=== PATIENT | male | born 1935 | race Caucasian/White ===

== ENCOUNTER 2016-10-04 11:44 | Observation (INO) ==
[2016-10-04] MEDS ORDERED: SALINE FLUSH 10ml SYRINGE IVF PRN (12:05)
--- NOTE | 2016-10-04 12:15 | Emergency Department Report ---
General Adult HPI - General Chief complaint: Shortness of Breath/Dyspnea Stated complaint: soa,phlem Time Seen by Provider: 10/04/16 12:05 Source: patient Mode of arrival: ambulatory Limitations: no limitations - History of Present Illness HPI narrative: 81-year-old male presents to the emergency department with a chief complaint of shortness of breath. Patient states that over the course of the past week he has noted dyspnea with exertion. Patient also notes a heaviness in his chest when he exerts himself. Patient states that his symptoms improve with rest. Patient describes his discomfort when present as a moderate heaviness without radiation. He notes that his symptoms improved with rest and relaxation. Symptoms increase with ambulation and exertion. Patient denies any other complaints or associated symptoms. He was at home when his symptoms began. Patient states that his symptoms been persistent in nature on an intermittent basis since onset. Patient currently denies any chest pain or discomfort. - Related Data Home Medications Medication Instructions Recorded Confirmed No known Home medications [No home 10/04/16 10/04/16 meds] Allergies Allergy/AdvReac Type Severity Reaction Status Date / Time No Known Allergies Allergy Verified 10/04/16 12:25 Review of Systems Constitutional: Denies: fever, chills Eyes: Denies: eye pain, eye discharge ENT: Denies: ear pain, throat pain Cardiovascular: Reports: dyspnea on exertion. Denies: chest pain, palpitations Respiratory: Reports: dyspnea. Denies: cough Gastrointestinal: Denies: abdominal pain, nausea, vomiting, diarrhea Genitourinary: Denies: urgency, dysuria Musculoskeletal: Denies: back pain, arthralgia Integumentary: Denies: erythema, rash Neurological: Denies: headache, numbness Psychiatric: Denies: anxiety, depression Endocrine: Denies: fatigue, heat or cold intolerance Hematological/Lymphatic: Denies: easy bleeding, easy bruising Allergic/Immunologic: Denies: facial swelling, urticaria PFSH Patient Stated Medical History Hypertension Yes Diabetes Mellitus Type 2 Yes Ulcer Yes Surgical History: Negative Family History: Reviewed and noncontributory. - Social History Smoking status: Former smoker Substance use type: does not use Alcohol intake frequency: former alcohol drinker Physical Exam - Limitations Limitations: no limitations - General General appearance: alert, in no apparent distress - Normal Exams: Head:: Normocephalic without trauma Eyes:: Pupils are PERRLA w/ EOMI, No scleral icterus, irritation, or foreign bodies noted ENMT:: No facial trauma, nasal exudates, pharyngeal erythema, or exudates are noted Dental: No fractured, loose, or missing teeth noted Neck:: Full range of motion, without adenopathy, JVD, bruits or thyromegaly Chest/Respirations:: Clear all robles, with good airflow, and symmetry bilaterally Cardiovascular:: Regular rate and rhythm, without murmur or gallop, Pulses 2+ all extremities, capillary refill, <2 seconds all extremities Abdomen:: Bowel sounds positive, soft, non-tender, non-distended, no hepatosplenomegaly, masses or bruits noted Lymphatic:: No lymphadenopathy, or lymphedema noted Musculoskeletal:: No tenderness, or deformity noted, good range of motion, all extremities Integumentary:: No rashes, hives, or bruising noted, hair and nails, without abnormality Neurological:: Patient is alert, and oriented, cranial nerves, motor/sensory/ cerebellar, exams w/o gross deficits, to observation Psychiatric:: Patient exhibits, appropriate attention, emotion and affect Course Vital Signs Temperature 98.3 F 10/04/16 11:48 Pulse Rate 105 H 10/04/16 11:48 Respiratory Rate 20 10/04/16 11:48 Blood Pressure 150/93 H 10/04/16 11:48 Pulse Oximetry 90 10/04/16 11:48 Temperature 98.3 F 10/04/16 13:45 Pulse Rate 92 10/04/16 13:45 Respiratory Rate 21 10/04/16 13:45 Blood Pressure 133/81 10/04/16 13:45 Pulse Oximetry 90 10/04/16 13:45 Medical Decision Making - [facility] Narrative Medical decision making narrative: Labs / imaging were discussed in detail with the patient and family and questions are answered. Patient is given aspirin 324 mg by mouth 1 in the emergency Department. Patient is given Lovenox 1 mg/kg subcutaneously 1 in the emergency Department. Patient is admitted to the service of Dr. Sosa the airline managerial supervisor in improved condition. Patient and family are in agreement with the current plan of management. 47 minutes of critical care time was assessed to the patient due to the patient requiring complex medical decision- making, repeated assessment at the bedside, and having the potential for decompensation. Patient had a positive troponin and was treated with 324 mg of aspirin by mouth 1 and Lovenox 1 mg/kg subcutaneous venously 1 in the emergency Department. Patient is admitted to the ICU in improved condition. No further orders from accepting physician who is in agreement with the current plan of management. - Differential Diagnosis ACS, Angina, Metabolic disorder, LA - Lab Data Result diagrams: 10/04/16 12:11 10/04/16 12:11 Lab Results 10/04/16 10/04/16 Range/Units 12:11 12:11 WBC 10.8 (4.5-11.0) T/MM3 RBC 5.69 (4.50-5.90) M/MM3 Hgb 16.9 (13.5-17.5) GM/DL Hct 50.0 (41-53) % MCV 87.9 (80-100) UM3 MCH 29.7 (26-34) UUG MCHC 33.8 (31-37) GM/DL RDW Std Deviation 42.5 (36.9-50.2) FL Plt Count 219 (130-400) T/MM3 MPV 10.8 (9.4-12.4) UM3 Immature Gran % (Auto) 0.2 (0.0-0.5) % Neut % (Auto) 76.4 H (33-66) % Lymph % (Auto) 13.7 L (23-45) % [place] % (Auto) 8.1 (0-9.0) % Eos % (Auto) 1.2 (0-4) % Baso % (Auto) 0.4 (0-2) % Neut # 8.2 H (1.8-7.7) T/MM3 Lymph # 1.5 (1-4.8) T/MM3 [place] # 0.9 H (0-0.8) T/MM3 Eos # 0.1 (0-0.5) T/MM3 Baso # 0.0 (0-0.2) T/MM3 Abs Immat Gran (auto) 0.02 (0.00-0.03) T/MM3 Turbidity < 20 (0-20) Sodium 143 (134-144) MEQ/L Potassium 5.0 (3.6-5) MEQ/L Chloride 107 (98-107) MEQ/L Carbon Dioxide 23 (22-30) MEQ/L Anion Gap 13 (5-15) MEQ/L BUN 20.0 (9-20) MG/DL Creatinine 1.5 (0.8-1.5) MG/DL GFR Calculation 45 BUN/Creatinine Ratio 13 (6-26) RATIO Glucose 164 H (75-110) MG/DL Calculated Osmolality 282 H (261-280) MOSM/KG Calcium 9.8 (8.4-10.2) MG/DL Total Bilirubin 1.20 (0.20-1.30) MG/DL Icterus Index < 2 (0-7) AST 25 (17-59) U/L ALT 28 (21-72) U/L Alkaline Phosphatase 109 (38-126) U/L Troponin I 0.223 H (0-0.12) ng/ml B-Natriuretic Peptide 4790 H (0-175) pg/mL Total Protein 8.0 (6.3-8.2) G/DL Albumin 4.6 (3.5-5.0) G/DL Globulin 3.4 (2.4-3.6) G/DL Albumin/Globulin Ratio 1.4 (1.1-2.2) RATIO Specimen Hemolysis 25 (0-25) - Radiology Data CXR - No acute processes. Critical Care Time Critical Care Time: Yes Total Critical Care Time: 47 Attestation: 47 minutes of critical care time was assessed to the patient due to the positive troponin. Patient required repeated assessment at the bedside, complex medical decision-making, and had potential for decompensation. The critical care time was spent treating the patient, discussing with family, making phone calls on the patient's behalf, and documenting the medical record. Patient was admitted to the ICU in improved condition. Disposition Clinical Impression: Elevated troponin Disposition: 02 To [facility] [place] Acute Care Condition: Improved Time of Disposition: 12:47 (Admit: Dr. Sosa. ) - Seen By: physician
--- OUTSIDE RECORDS SUMMARY | 2016-10-04 12:27 | External Medical Summary | Summary of Care ---
:1935 Author Name Jak Perez M.D. Address Unavailable Unavailable , Care Team Providers Name Role Phone Jak Perez M.D. 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 Arthritis (716.90, M19.90) Status: Active Murmur (785.2, R01.1) Status: Active Sensorineural hearing loss (389.10, H90.5) Status: Active Lower back pain (724.2, M54.5) Status: Active Routine physical examination (V70.0, Z00.00) Status: Active Right shoulder pain (719.41, M25.511) Status: Active Edema (782.3, R60.9) Status: Active Diabetes mellitus type 2, controlled (250.00, E11.9) Status: Active Hypertension, essential, benign (401.1, I10) Status: Active Hyperlipidemia (272.4, E78.5) Status: Active CKD (chronic kidney disease) stage 3, GFR 30-59 ml/min (585.3, N18.3) Status : Active Medications Name Dates Details Aspirin Low Dose 81 MG TABS TAKE 1 TABLET DAILY. Quantity: 90 Refills: 3 Al Perez M.D. Start 20-Apr-2008 Active Simvastatin 40 MG Oral Tablet TAKE 1 TABLET BY MOUTH EVERY NIGHT AT BEDTIME Quantity: 30 Refills: 5 Al Perez M.D. Start 18-Oct-2010 Active Lisinopril-Hydrochlorothiazide 10-12.5 MG Oral Tablet TAKE 1 TABLET DAILY. Quantity: 30 Refills: 5 Al Perez M.D. Start Active Water Pills Oral Tablet Refills: 0 Al Perez M.D. 17-Jul-2016 Active Allergies and Adverse Reactions Name Dates Details No Known Drug Allergies (Allergy) Status: Active Past Medical History Name Dates Details History of abnormal weight loss (V13.89, Z87.898) Status: Resolved History of Benign colon polyp (211.3, K63.5) Status: Resolved History of Peptic Ulcer (V12.71) Status: Resolved History of renal calculi (V13.01, Z87.442) Status: Resolved Procedures Procedure Dates Details History of Tonsillectomy History of Exploratory Laparotomy History of Complete Colonoscopy BASIC METABOLIC PROFILE 1210 Ordered: 22-Jul-2016 CBC w/ Auto Diff 7150 Ordered: 22-Jul-2016 HEMOGLOBIN A1C 3507 Ordered: 22-Jul-2016 LIPID PROFILE 1184 Ordered: 22-Jul-2016 THYROID STIM. HORMONE 3602 Ordered: 22-Jul-2016 Immunization Name Dates Details Pneumo (Pneumovax) on: 19-Jun-2009 Family History Unknown Family Member Name Dates Details Family history of Diabetes Mellitus (V18.0) Comments: Family History Status: Active Family history of Composition Of Household ___ Brothers Comments: Family History Status: Active Family history of Composition Of Household ___ Sisters Comments: Family History Status: Active Family history of Family Health Status Children Comments: Family History Status: Active Mother Name Dates Details Family history of Laryngeal Cancer (V16.2) Status: Active Family history of lung cancer (V16.1, Z80.1) Status: Active Father Name Dates Details Family history of Electrocution Status: Active Brother Name Dates Details Family history of Coronary Artery Disease (V17.49) Status: Active Social History Name Dates Details - Status: Smoking Status Name Dates Details Former smoker Vital Signs Date Test Result Details No Known Vitals to report Results Date Description Value Details Results not documented Plan of Care Name Dates Details Planned Observations Planned Goals not documented Planned Encounters Appointment; Provider: Al Perez M.D. On 23-Oct-2016 09:30 Interventions Provided Medication ChangesIbuprofen 800 MG Oral Tablet - StopLisinopril- Hydrochlorothiazide 10-12.5 MG Oral Tablet - RenewSimvastatin 40 MG Oral Tablet - RenewLabs/Procedures/ImagingComprehensive Metabolic Panel 1212; Done: Jul 17 2016 11:14AMHEMOGLOBIN A1C 3507; Done: Jul 17 2016 11:14AM Instructions Name Dates Details Instructions not documented Encounters Appointment; Al Perez M.D. On Encounter Diagnosis: Problem not documented 08:30 Appointment; Al Perez M.D. On 08-Jun-2015 Encounter Diagnosis: Problem not documented 15:00 Appointment; Al Perez M.D. On 09-May-2015 Encounter Diagnosis: Problem not documented 08:45 Appointment; Al Perez M.D. On 04-May-2015 Encounter Diagnosis: Problem not documented 10:45 Appointment; Al Perez M.D. On 05-Feb-2015 Encounter Diagnosis: Problem not documented 14:00 Appointment; Al Perez M.D. On 25-Dec-2014 Encounter Diagnosis: Problem not documented 13:15
--- OUTSIDE RECORDS SUMMARY | 2016-10-04 12:27 | External Medical Summary | Summary of Care ---
[...] Routine physical examination (V70.0, Z00.00) Status: Active Hyperlipidemia (272.4, E78.5) Status: Active Right shoulder pain (719.41, M25.511) Status: Active Hypertension, essential, benign (401.1, I10) Status: Active Edema (782.3, R60.9) Status: Active Diabetes mellitus type 2, controlled (250.00, E11.9) Status: Active Medications Name Dates Details Aspirin Low Dose 81 MG TABS TAKE 1 TABLET DAILY. Quantity: 90 Refills: 3 Al Perez M.D. Start 20-Apr-2008 Active Simvastatin 40 MG Oral Tablet TAKE 1 TABLET BY MOUTH EVERY NIGHT AT BEDTIME Quantity: 30 Refills: 5 Al Perez M.D. Start 18-Oct-2010 Active Lisinopril-Hydrochlorothiazide 10-12.5 MG Oral Tablet TAKE 1 TABLET DAILY. Quantity: 30 Refills: 5 Al ePrez M.D. Start Active Water Pills Oral Tablet Refills: 0 Al Perez M.D. Start 17-Jul-2016 Active Allergies and Adverse Reactions Name [...] of Exploratory Laparotomy History of Complete Colonoscopy Comprehensive Metabolic Panel 1212 Ordered: 17-Jul-2016 HEMOGLOBIN A1C 3507 Ordered: 17-Jul-2016 Immunization Name Dates Details Pneumo (Pneumovax) on: [...] smoker Vital Signs Date Test Result Details 17-Jul-2016 10:42 BP Systolic 128 mm[Hg] Status: Comments: Location: ; Position: BP Diastolic 74 mm[Hg] Status: Comments: Location: ; Position: Heart Rate 59 /min Status: Comments: Location: ; Weight 196 lb Status: Body Mass Index Calculated 30.47 kg/m2 Status: Body Surface Area Calculated 2.01 m2 Status: 17-Jul-2016 10:39 BP Systolic 128 mm[Hg] Status: Comments: Location: ; Position: BP Diastolic 74 mm[Hg] Status: Comments: Location: ; Position: Heart Rate 59 /min Status: Comments: Location: ; Weight 196 lb Status: Body Mass Index Calculated 30.47 kg/m2 Status: Body Surface Area Calculated 2.01 m2 Status: Results Date Description Value Details Results not documented Plan of Care Name Dates Details Planned Observations Planned Goals not documented Planned Encounters Appointment; Provider: Al Perez M.D. On 23-Oct-2016 09:30 Interventions Provided Medication ChangesIbuprofen 800 MG Oral Tablet - StopLisinopril- Hydrochlorothiazide 10-12.5 MG Oral Tablet - RenewSimvastatin 40 MG Oral Tablet - RenewLabs/Procedures/ImagingComprehensive Metabolic Panel 1212; To be Done: 17 Jul 2016HEMOGLOBIN A1C 3507; To be Done: 17 Jul 2016 Instructions Name Dates Details Instructions not documented [...]
--- OUTSIDE RECORDS SUMMARY | 2016-10-04 12:27 | External Medical Summary | Summary of Care ---
:1935 Author Name Jak Perez M.D. Address [address], [place] [id number] Care Team Providers Name Role Phone Jak Perez M.D. Unavailable Unavailable Al Perez Primary Care Provider Unavailable Unavailable Unavailable Unavailable Functional Status Functional [...] Lower back pain (724.2, M54.5) Status: Active Hyperlipidemia (272.4, E78.5) Status: Active Type 2 diabetes mellitus (250.00, E11.9) Status: Active Hypertension (401.9, I10) Status: Active Routine physical examination (V70.0, Z00.00) Status: Active Right shoulder pain (719.41, M25.511) Status: Active Medications Name Dates Details Aspirin Low Dose 81 MG Oral Tablet TAKE 1 TABLET DAILY. Quantity: 90 Refills: 3 Al Perez M.D. Started 20-Apr-2008 ActiveLisinopril 20 MG Oral Tablet TAKE ONE TABLET BY MOUTH ONCE DAILY Quantity: 30 Refills: 5 Al Perez M.D. Started 20-Apr-2008 ActiveSimvastatin 40 MG Oral Tablet TAKE ONE TABLET BY MOUTH EVERY DAY AT BEDTIME Quantity: 30 Refills: 5 Al Perez M.D. Started 18-Oct-2010 ActiveIbuprofen 800 MG Oral Tablet TAKE 1 TABLET 3 TIMES DAILY WITH FOOD NEEDED. Quantity: 60 Refills: 0 Al Perez M.D. Started 04-Apr-2011 ActiveHydrocodone-Acetaminophen 5-325 MG Oral Tablet TAKE 1 TABLET EVERY 4 TO 6 HOURS NEEDED. Quantity: 25 Refills: 0 Al Perez M.D. Started 04-May-2015 ActiveMeloxicam 15 MG Oral Tablet TAKE 1 TABLET DAILY. Quantity: 15 Refills: 5 Al Perez M.D. Started 04-May-2015 ActiveOxycodone-Acetaminophen 7.5-325 MG Oral Tablet TAKE 1 TO 2 TABLETS EVERY 4 TO 6 HOURS NEEDED FOR PAIN. Quantity: 30 Refills: 0 Al Perez M.D. Started 08-May-2015 Active Allergies and Adverse Reactions Name Dates Details No Known Drug Allergies Status: Active Past Medical History Name Dates Details History of abnormal weight loss (V13.89, Z87.898) Status: Resolved History of Benign colon polyp (211.3, K63.5) Status: Resolved History of Peptic Ulcer (V12.71) Status: Resolved History of renal calculi (V13.01, Z87.442) Status: Resolved Procedures Procedure Dates Details History of Tonsillectomy History of Exploratory Laparotomy History of Complete Colonoscopy Procedures not documented Immunization Name Dates Details Pneumo (Pneumovax) Administered on:19-Jun-2009 Family History Unknown Family Member Name Dates [...] Status: Active Social History Name Dates Details Smoking StatusFormer smoker Vital Signs Date Test Result Details 09-May-2015 08:52 BP Systolic 140 mm[Hg] Status: BP Diastolic 86 mm[Hg] Status: Heart Rate 82 /min Status: Weight 192 lb Status: Body Mass Index Calculated 29.85 kg/m2 Status: Body Surface Area Calculated 1.99 m2 Status: Results Date Description Value Details Results not documented Plan of Care Planned Observations Name Dates Details Planned Goals not documented Goal Planned Encounters Appointment; Provider: Al Perez On 08-Jun-2015 15:15 Appointment; Provider: Edson Hirsch On 12:00 Appointment; Provider: Edson Hirsch On 15:30 Appointment; Provider: Edson Hirsch On 15:30 Instructions Instructions not documented Encounters Appointment; Al Perez On 09-May-2015 Encounter Diagnosis: Problem not documented 08:45 Appointment; Al Perez On 04-May-2015 Encounter Diagnosis: Problem not documented 10:45 Appointment; Al Perez On 05-Feb-2015 Encounter Diagnosis: Problem not documented 14:00 Appointment; Al Perez On 25-Dec-2014 Encounter Diagnosis: Problem not documented 13:15 Appointment; Nik John On 06-Mar-2014 Encounter Diagnosis: Problem not documented 09:30 Appointment; Edson Hirsch On 30-Nov-2013 Encounter Diagnosis: Problem not documented 12:15 Appointment; Al Perez On 07-Oct-2013 Encounter Diagnosis: Problem not documented 10:15 Appointment; Al Perez On Encounter Diagnosis: Problem not documented 09:15 Appointment; Edson Hirsch On Encounter Diagnosis: Problem not documented 08:15 Appointment; Edson Hirsch On Encounter Diagnosis: Problem not documented 14:15 Appointment; Edson Hirsch On Encounter Diagnosis: Problem not documented 11:45 Appointment; Toby Cabrera On Encounter Diagnosis: Problem not documented 08:15
--- OUTSIDE RECORDS SUMMARY | 2016-10-04 12:27 | External Medical Summary | Summary of Care ---
:1935 Author Name Jak Perez M.D. Address [address] [place], [place] [id number] Care Team Providers Name Role Phone Jak Perez M.D. 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 Hyperlipidemia (272.4, E78.5) Status: Active Arthritis (716.90, M19.90) Status: Active Murmur (785.2, R01.1) Status: Active Sensorineural hearing loss (389.10, H90.5) Status: Active Type 2 diabetes mellitus (250.00, E11.9) Status: Active Nephrolithiasis (592.0, N20.0) Status: Active Cough (786.2, R05) Status: Active Weight loss, abnormal (783.21, R63.4) Status: Active Fatigue (780.79, R53.83) Status: Active Hypertension (401.9, I10) Status: Active Insomnia (780.52, G47.00) Status: Active Acute bronchitis (466.0, J20.9) Status: Active Lower back pain (724.2, M54.5) Status: Active Medications Name Dates Details Aspirin Low Dose 81 MG Oral Tablet TAKE 1 TABLET DAILY. Quantity: 90 Refills: 3 Al Perez M.D. Started 20-Apr-2008 ActiveLisinopril 20 MG Oral Tablet TAKE ONE TABLET BY MOUTH ONCE DAILY Quantity: 30 Refills: 0 Al Perez M.D. Started 20-Apr-2008 ActiveSimvastatin 40 MG Oral Tablet TAKE ONE TABLET BY MOUTH EVERY DAY AT BEDTIME Quantity: 30 Refills: 5 Al Perez M.D. Started 18-Oct-2010 ActiveIbuprofen 800 MG Oral Tablet TAKE 1 TABLET 3 TIMES DAILY WITH FOOD NEEDED. Quantity: 60 Refills: 0 Al Perez M.D. Started 04-Apr-2011 ActiveLevofloxacin 500 MG Oral Tablet Take 1 tablet daily Quantity: 7 Refills: 0 Al Perez M.D. Started 25-Dec-2014 Active Allergies and Adverse Reactions Name Dates Details No Known Drug Allergies Status: Active Past Medical History Name Dates Details History of Peptic Ulcer (V12.71) Status: Resolved Procedures Procedure Dates Details History of Tonsillectomy History of Exploratory Laparotomy History of Complete Colonoscopy CBC w/ Auto Diff 7150 Ordered:26-Dec-2014 Comprehensive Metabolic Panel 1212 Ordered:26-Dec-2014 LIPID PROFILE 1184 Ordered:26-Dec-2014 THYROID STIM. HORMONE 3602 Ordered:26-Dec-2014 HEMOGLOBIN A1C 3507 Ordered:26-Dec-2014 Immunization Name Dates Details Pneumo (Pneumovax) Administered [...] not documented Goal Planned Encounters Appointment; Provider: Edson Hirsch On 12:00 Appointment; Provider: Edson Hirsch On 15:30 Appointment; Provider: Edson Hirsch On 15:30 Instructions Instructions not documented Encounters Appointment; Al Perez On 25-Dec-2014 Encounter Diagnosis: [...] Encounter Diagnosis: Problem not documented 08:15 Appointment; Al Perez On 02-May-2013 Encounter Diagnosis: Problem not documented 09:00 Appointment; Nik John On 07-Mar-2013 Encounter Diagnosis: Problem not documented 09:15
--- OUTSIDE RECORDS SUMMARY | 2016-10-04 12:27 | External Medical Summary | Summary of Care ---
:1935 Author Name Jak Perez M.D. Address [address] [place], [place] [id number] Care Team Providers Name Role Phone Jak [...] Refills: 0 Al Perez M.D. Started 04-Apr-2011 ActiveCyclobenzaprine HCl - 10 MG Oral Tablet TAKE 1 TABLET Bedtime PRN muscle spasm Quantity: 15 Refills: 0 Al Perez M.D. Started 04-May-2015 ActiveHydrocodone-Acetaminophen 5-325 MG Oral Tablet TAKE 1 [...] smoker Vital Signs Date Test Result Details 04-May-2015 10:43 BP Systolic 156 mm[Hg] Status: BP Diastolic 92 mm[Hg] Status: Heart Rate 84 /min Status: Weight 192 lb Status: Body Mass Index Calculated 29.85 kg/m2 Status: Body Surface Area Calculated 1.99 m2 Status: Results Date Description Value Details 07-May-2015 13:08 XRay SHOULDER-Right Comments: Exam Date: 05/07/2015 12: 19Dictation Date: 05/07/2015 13:08 X SHOULDER COMP (MIN 2V) RT (Better) Plan of Care Planned Observations Name Dates Details Planned Goals not documented Goal Planned Encounters Appointment; Provider: Al Perez On 08-Jun-2015 15:15 Appointment; Provider: Da Spencer On 16-May-2015 11:00 Appointment; Provider: Al Perez On 09-May-2015 08:45 Appointment; Provider: Edosn Hirsch On 12:00 Appointment; Provider: Edson Hirsch On 15:30 Appointment; Provider: Edson Hirsch On 15:30 Instructions Instructions not documented Encounters Appointment; Al Perez On 04-May-2015 Encounter Diagnosis: Problem not documented 10:45 Appointment; Al Perez On 05-Feb-2015 Encounter Diagnosis: Problem not documented 14:00 Appointment; Al Perez On 25-Dec-2014 Encounter Diagnosis: Problem not documented 13:15 Appointment; Nik John On 06-Mar-2014 Encounter Diagnosis: Problem not documented 09:30 Appointment; Edosn Hirsch On 30-Nov-2013 Encounter Diagnosis: Problem not [...]
--- OUTSIDE RECORDS SUMMARY | 2016-10-04 12:27 | External Medical Summary | Summary of Care ---
:1935 Author Name Jak Perez M.D. Address [address], [place] [id number] Care Team Providers Name Role Phone Jak [...] smoker Vital Signs Date Test Result Details 08-Jun-2015 15:06 BP Systolic 138 mm[Hg] Status: BP Diastolic 90 mm[Hg] Status: Heart Rate 72 /min Status: Weight 191 lb Status: Body Mass Index Calculated 29.69 kg/m2 Status: Body Surface Area Calculated 1.99 m2 Status: Results Date Description Value Details 07-Jun-2015 10:30 BASIC METABOLIC PROFILE Comments: Fastin hours 1210 SODIUM 137 mmol/L Range: 133-144 (Better) POTASSIUM 4.1 mmol/L Range: 3.5-5.1 (Better) CHLORIDE 100 mmol/L Range: 98-110 (Better) CARBON DIOXIDE 26.9 mmol/L Range: 23.0-33.0 (Better) ANION GAP 10 mmol/L (Better) Range: 6-16 BUN 22 mg/dL (Above Range: 7-18 high threshold) CREATININE, SERUM 1.38 mg/dL (Above Range: 0.70-1.30 high threshold) Comments: Please note new reference ranges effective 07/15.----- EST GFR, >60 ml/min Range: >60 (Better) EST GFR, NON-AFR TURKISH 50 ml/min (Below Range: >60 low threshold) Comments: EST GFR is reported in ml/min per 1.73 m2 of body surface area. For -South African, please multiple result by 1.2.----- BUN:CREATININE RATIO 16 (Better) GLUCOSE 129 mg/dL (Above Range: 70-100 high threshold) CALCIUM 8.7 mg/dL (Better) Range: 8.5-10.1 10:38 Quant Microalbumin 1106 Comments: Fastin hours MICROALBUMIN, URINE 10.2 mg/L (Better) Range: <20.1 11:10 HEMOGLOBIN A1C 3507 Comments: Fastin hours Hemoglobin A1C 6.4 % (Better) ESTIMATED AVG. GLUCOSE 137 (Better) Plan of Care Planned Observations Name Dates Details Planned Goals not documented Goal Planned Encounters Appointment; Provider: Al Perez On 08:30 Appointment; Provider: Edson Hirsch On 12:00 Appointment; Provider: Edson Hirsch On 15:30 Appointment; Provider: Edson Hirsch On 15:30 Instructions Instructions not documented Encounters Appointment; Al Perez On 08-Jun-2015 Encounter Diagnosis: Problem not documented 15:00 Appointment; Al Perez On 09-May-2015 Encounter Diagnosis: [...]
--- OUTSIDE RECORDS SUMMARY | 2016-10-04 12:27 | External Medical Summary | Summary of Care ---
[...] Right shoulder pain (719.41, M25.511) Status: Active Diabetes mellitus type 2, controlled (250.00, E11.9) Status: Active Hypertension, essential, benign (401.1, I10) Status: Active Edema (782.3, R60.9) Status: Active Medications Name Dates Details Aspirin Low Dose 81 MG TABS TAKE 1 TABLET DAILY. Quantity: 90 Refills: 3 Al Perez M.D. Start 20-Apr-2008 Active Simvastatin 40 MG Oral Tablet TAKE ONE TABLET BY MOUTH ONCE DAILY AT BEDTIME Quantity: 30 Refills: 5 Al Perez M.D. 18-Oct-2010 Active Ibuprofen 800 MG Oral Tablet TAKE 1 TABLET 3 TIMES DAILY WITH FOOD NEEDED. Quantity: 60 Refills: 0 Al Perez M.D. 04-Apr-2011 Active Lisinopril-Hydrochlorothiazide 20-12.5 MG Oral Tablet TAKE 1 TABLET DAILY. Quantity: 30 Refills: 5 Al Perez M.D. Active Allergies and Adverse Reactions Name Dates [...] documented Immunization Name Dates Details Pneumo (Pneumovax) on: [...] smoker Vital Signs Date Test Result Details 08:32 BP Systolic 150 mm[Hg] Status: Comments: Location: ; Position: BP Diastolic 78 mm[Hg] Status: Comments: Location: ; Position: Heart Rate 82 /min Status: Comments: Location: ; Weight 194.25 lb Status: Body Mass Index Calculated 30.2 kg/m2 Status: Body Surface Area Calculated 2 m2 Status: Results Date Description Value Details 10:32 BASIC METABOLIC PROFILE 1210 Comments: Fastin hours SODIUM 140 mmol/L Range: 133-144 POTASSIUM 4.4 mmol/L Range: 3.5-5.1 CHLORIDE 105 mmol/L Range: 98-110 CARBON DIOXIDE 28.3 mmol/L Range: 23.0-33.0 ANION GAP 7 mmol/L Range: 6-16 BUN 22 mg/dL (Above high Range: 7-18 threshold) CREATININE, SERUM 1.55 mg/dL (Above high Range: 0.70-1.30 threshold) Comments: Please note new reference ranges effective 2014. ----- EST GFR, 53 ml/min (Below low Range: >60 threshold) EST GFR, NON-AFR AUSTRALIAN 44 ml/min (Below low Range: >60 threshold) Comments: EST GFR is reported in ml/min per 1.73 m2 of body surface area. For -Mauritian, please multiple result by 1.2.----- BUN:CREATININE RATIO 14 GLUCOSE 122 mg/dL (Above high Range: 70-100 threshold) CALCIUM 8.9 mg/dL Range: 8.5-10.1 13:05 HEMOGLOBIN A1C 3507 Comments: Fastin hours Hemoglobin A1C 6.6 % ESTIMATED AVG. GLUCOSE 143 Plan of Care Name Dates Details Planned Observations Planned Goals not documented Planned Encounters Appointment; Provider: Al Perez M.D. On 02-Nov-2015 08:30 Interventions Provided Medication ChangesLisinopril 20 MG Oral Tablet - StopLisinopril- Hydrochlorothiazide 20-12.5 MG Oral Tablet - Start Instructions Name Dates Details Instructions not documented Encounters Appointment; Al Perez M.D. On 08-Jun-2015 Encounter Diagnosis: Problem not documented 15:00 Appointment; Al Perez M.D. On 09-May-2015 Encounter Diagnosis: Problem not documented 08:45 Appointment; Al Perez M.D. On 04-May-2015 Encounter Diagnosis: Problem not documented 10:45 Appointment; Al Perez M.D. On 05-Feb-2015 Encounter Diagnosis: Problem not documented 14:00 Appointment; Al Perez M.D. On 25-Dec-2014 Encounter Diagnosis: Problem not documented 13:15 Appointment; Nik John M.D. On 06-Mar-2014 Encounter Diagnosis: Problem not documented 09:30 Appointment; Edson Hirsch M.D.|Sheila,MATTHEW|Corrine,MATTHEW, On 2013 Encounter Diagnosis: Problem not documented 12:15 Appointment; Al Perez M.D. On 07-Oct-2013 Encounter Diagnosis: Problem not documented 10:15 Appointment; Al Perez M.D. On Encounter Diagnosis: Problem not documented 09:15"
--- OUTSIDE RECORDS SUMMARY | 2016-10-04 12:27 | External Medical Summary | Summary of Care ---
:1935 Author Name Jak Perez M.D. Address Unavailable Unavailable , Care Team Providers Name Role Phone Chris Castle, Jak Melendez Unavailable Unavailable Al Perez Primary Care Provider [...] Status: Active Hyperlipidemia (272.4, E78.5) Status: Active Hypertension, essential, benign (401.1, I10) Status: Active Diabetes mellitus type 2, controlled (250.00, E11.9) Status: Active Right shoulder pain (719.41, M25.511) Status: Active Medications Name Dates Details Aspirin Low Dose 81 MG TABS TAKE 1 TABLET DAILY. Quantity: 90 Refills: 3 Al Perez M.D. Started 20-Apr-2008 ActiveSimvastatin 40 MG Oral Tablet TAKE ONE TABLET BY MOUTH ONCE DAILY AT BEDTIME Quantity: 30 Refills: 5 Al Perez M.D. Started 18-Oct-2010 ActiveIbuprofen 800 MG Oral Tablet TAKE 1 TABLET 3 TIMES DAILY WITH FOOD NEEDED. Quantity: 60 Refills: 0 Al Perez M.D. Started 04-Apr-2011 ActiveMeloxicam 15 MG Oral Tablet TAKE 1 TABLET DAILY. Quantity: 15 Refills: 5 Al Perez M.D. Started 04-May-2015 ActiveOxycodone-Acetaminophen 7.5-325 MG Oral Tablet TAKE 1 TO 2 TABLETS EVERY 4 TO 6 HOURS NEEDED FOR PAIN. Quantity: 30 Refills: 0 Al Perez M.D. Started 08-May-2015 ActiveHydrocodone-Acetaminophen 5-325 MG Oral Tablet TAKE 1 TABLET EVERY 4 TO 6 HOURS NEEDED. Quantity: 25 Refills: 0 Al Perez M.D. Started 04-May-2015 ActiveLisinopril 20 MG Oral Tablet TAKE ONE TABLET BY MOUTH ONCE DAILY Quantity: 30 Refills: 5 Al Perez M.D. Started 20-Apr-2008 Active Allergies and Adverse Reactions Name Dates [...]
--- OUTSIDE RECORDS SUMMARY | 2016-10-04 12:27 | External Medical Summary | Summary of Care ---
:1935 Author Name Jak Perez M.D. Address [address], [place] [id number] Care Team Providers Name Role Phone Jak [...] Refills: 5 Al Perez M.D. Started 04-May-2015 Active Allergies and Adverse Reactions Name Dates [...] Encounter Diagnosis: Problem not documented 14:15 Appointment; Esdon Hirsch On Encounter Diagnosis: Problem not documented 11:45 Appointment; Toby Cabrera On Encounter Diagnosis: Problem not documented 08:15
--- OUTSIDE RECORDS SUMMARY | 2016-10-04 12:27 | External Medical Summary | Summary of Care ---
:1935 Author Name Jak Perez M.D. Address [address], [place] [id number] Care Team Providers Name Role Phone Jak Perez M.D. Unavailable Unavailable Al Perez Primary Care Provider Unavailable Unavailable Unavailable Unavailable Functional Status Functional Status Health Issues Name Dates Details Functional status health issues are not documented Status: Cognitive Status Health Issues Name Dates Details Cognitive status health issues are not documented Status: Problems Name Dates Details Actinic keratosis (702.0, L57.0) Status: Active Routine history and physical examination [...] Status: Active Hypertension (401.9, I10) Status: Active Benign colon polyp (211.3, K63.5) Status: Active Medications Name Dates Details Aspirin [...] Refills: 0 Al Perez M.D. Started 04-Apr-2011 Active Allergies and Adverse Reactions Name Dates Details No Known Drug Allergies Status: Active Past Medical History Name Dates Details History of abnormal weight loss (V13.89, Z87.898) Status: Resolved History of Peptic Ulcer (V12.71) [...] smoker Vital Signs Date Test Result Details 05-Feb-2015 14:01 BP Systolic 152 mm[Hg] Status: BP Diastolic 84 mm[Hg] Status: Temperature 98.6 f Status: Heart Rate 72 /min Status: Respiration Rate 18 /min Status: Weight 193.6 lb Status: Body Mass Index Calculated 30.1 kg/m2 Status: Body Surface Area Calculated 2 m2 Status: Results Date Description Value Details 30-Jan-2015 09:09 CBC w/ Auto Diff 7150 Comments: Fastin hours WBC 6.3 K/uL (Better) Range: 4.5-11.0 RBC 4.65 mil/uL Range: 4.20-5.40 (Better) HGB 14.0 g/dL Range: 14.0-18.0 (Better) HCT 43.4 % (Better) Range: 42.0-53.0 MCV 93.2 fL (Better) Range: 80.0-99.0 MCH 30.1 pg (Better) Range: 27.3-32.5 MCHC 32.3 % (Better) Range: 32.0-36.0 RDW 13.1 % (Better) Range: 11.6-14.8 PLATELETS 212 K/uL (Better) Range: 150-400 MPV 8.4 fL (Better) Range: 6.0-11.0 %NEUTRO 51.0 % (Better) Range: 37.0-80.0 %LYMPHS 31.9 % (Better) Range: 13.0-50.0 %MONO 6.9 % (Better) Range: 0.0-12.0 %EOS 6.8 % (Better) Range: 0.0-7.0 %BASO 0.7 % (Better) Range: 0.0-2.5 %LEANN 2.7 % (Better) Range: 0.0-5.0 NEUTRO 3.2 K/uL (Better) Range: 2.0-6.9 LYMPHS 2.0 K/uL (Better) Range: 0.6-3.4 MONOS 0.4 K/uL (Better) Range: 0.0-0.9 EOS 0.4 K/uL (Better) Range: 0.0-0.7 BASO 0.0 K/uL (Better) Range: 0.0-0.2 09:37 THYROID STIM. HORMONE 3602 Comments: Fastin hours THYROID STIM. HORMONE 1.400 uIU/mL Range: 0.550-4.780 (Better) Comments: No established reference ranges for infants and children <2 years of age----- 09:40 Comprehensive Metabolic Comments: Fastin hours Panel 1212 SODIUM 136 mmol/L Range: 133-144 (Better) POTASSIUM 4.5 mmol/L Range: 3.5-5.1 (Better) CHLORIDE 102 mmol/L Range: 98-110 (Better) CARBON DIOXIDE 28.9 mmol/L Range: 23.0-33.0 (Better) ANION GAP 5 mmol/L (Below Range: 6-16 low threshold) BUN 23 mg/dL (Above Range: 7-18 high threshold) CREATININE, SERUM 1.42 mg/dL (Above Range: 0.70-1.30 high threshold) Comments: Please note new reference ranges effective 07/15.----- BUN:CREATININE RATIO 16 (Better) EST GFR, 59 ml/min (Below Range: >60 low threshold) EST GFR, NON-AFR SAMMARINESE 48 ml/min (Below Range: >60 low threshold) Comments: EST GFR is reported in ml/min per 1.73 m2 of body surface area. For -Ecuadorean, please multiple result by 1.2.----- GLUCOSE 110 mg/dL (Above Range: 70-100 high threshold) ALK PHOSPHATASE 80 U/L (Better) Range: 46-116 TOTAL BILIRUBIN 0.40 mg/dL Range: 0.20-1.00 (Better) AST 19 U/L (Better) Range: 8-35 ALT 18 U/L (Better) Range: 16-63 Comments: Please note new reference ranges. Effective 05/04/2014.----- ALBUMIN 3.7 g/dL (Better) Range: 3.4-5.0 TOTAL PROTEIN 7.0 g/dL (Better) Range: 6.4-8.2 A/G RATIO 1.1 units Range: 1.0-1.8 (Better) CALCIUM 8.7 mg/dL Range: 8.5-10.1 (Better) 09:40 LIPID PROFILE 1184 Comments: Fastin hours CHOLESTEROL 183 mg/dL Range: <200 (Better) TRIGLYCERIDES 59 mg/dL (Better) Range: 30-200 HDL Cholesterol 43 mg/dL (Better) Range: >39 NON HDL CHOLESTEROL 140 (Better) CARDIAC RSK FACTOR 4.3 units (Below Range: 4.4-5.0 low threshold) LDL - CALCULATED 128 mg/dL Range: 0-130 (Better) 09:43 HEMOGLOBIN A1C 3507 Comments: Fastin hours Hemoglobin A1C 6.7 % (Better) ESTIMATED AVG. GLUCOSE 146 (Better) Plan of Care Planned Observations Name Dates Details Planned Goals not documented Goal Planned Encounters Appointment; Provider: Edson Hirsch On 12:00 Appointment; Provider: Edson Hirsch On 15:30 Appointment; Provider: Edson Hirsch On 15:30 Instructions Instructions not documented Encounters Appointment; Al Perez On 05-Feb-2015 Encounter Diagnosis: [...]
--- OUTSIDE RECORDS SUMMARY | 2016-10-04 12:27 | External Medical Summary | Summary of Care ---
:1935 Author Name Jak Perez M.D. Address [address], [place] [id number] Care Team Providers Name Role Phone Jak [...]
--- OUTSIDE RECORDS SUMMARY | 2016-10-04 12:28 | External Medical Summary | Summary of Care ---
:1935 Author Name Jak Perez M.D. Address [address], [place] [phone] Care Team Providers Name Role Phone Jak [...] Body Surface Area Calculated 1.99 m2 Status: 04-May-2015 10:43 BP Systolic 156 mm[Hg] Status: [...] Da Spencer On 16-May-2015 11:00 Appointment; Provider: Edson Hirsch On 12:00 Appointment; [...] Diagnosis: Problem not documented 12:15 Appointment; Al Perze On 07-Oct-2013 Encounter Diagnosis: Problem not documented [...]
--- OUTSIDE RECORDS SUMMARY | 2016-10-04 12:28 | External Medical Summary | Summary of Care ---
:1935 Author Name Jak Perez M.D. Address Unavailable Unavailable , Care Team Providers Name Role Phone Chris Castle, Jak Mleendez Unavailable Unavailable Al Perez Primary Care Provider [...] Refills: 0 Al Perez M.D. Started 04-Apr-2011 ActiveLisinopril-Hydrochlorothiazide 20-12.5 MG Oral Tablet TAKE 1 TABLET DAILY. Quantity: 30 Refills: 5 Al Perez M.D. Started Active Allergies and Adverse Reactions Name Dates [...] Details 08:32 BP Systolic 150 mm[Hg] Status: BP Diastolic 78 mm[Hg] Status: Heart Rate 82 /min Status: Weight 194.25 lb Status: Body Mass Index Calculated 30.2 kg/m2 Status: Body Surface Area Calculated 2 m2 Status: Results Date Description Value Details 10:32 BASIC METABOLIC PROFILE Comments: Fastin hours 1210 SODIUM 140 mmol/L Range: 133-144 (Better) POTASSIUM 4.4 mmol/L Range: 3.5-5.1 (Better) CHLORIDE 105 mmol/L Range: 98-110 (Better) CARBON DIOXIDE 28.3 mmol/L Range: 23.0-33.0 (Better) ANION GAP 7 mmol/L (Better) Range: 6-16 BUN 22 mg/dL (Above Range: 7-18 high threshold) CREATININE, SERUM 1.55 mg/dL (Above Range: 0.70-1.30 high threshold) Comments: Please note new reference ranges effective 07/15.----- EST GFR, 53 ml/min (Below Range: >60 low threshold) EST GFR, NON-AFR CHILEAN 44 ml/min (Below Range: >60 low threshold) Comments: EST GFR is reported in ml/min per 1.73 m2 of body surface area. For -Malagasy, please multiple result by 1.2.----- BUN:CREATININE RATIO 14 (Better) GLUCOSE 122 mg/dL (Above Range: 70-100 high threshold) CALCIUM 8.9 mg/dL (Better) Range: 8.5-10.1 13:05 HEMOGLOBIN A1C 3507 Comments: Fastin hours Hemoglobin A1C 6.6 % (Better) ESTIMATED AVG. GLUCOSE 143 (Better) Plan of Care Planned Observations Name Dates Details Planned Goals not documented Goal Planned Encounters Appointment; Provider: Al Perez On 02-Nov-2015 08:30 Appointment; Provider: Edson Hirsch On 12:00 Appointment; Provider: Edson Hirsch On 15:30 Appointment; Provider: Edson Hirsch On 15:30 Instructions Instructions not documented Encounters Appointment; Al Perez On Encounter Diagnosis: Problem not documented 08:30 Appointment; Al Perez On 08-Jun-2015 Encounter Diagnosis: [...]
--- OUTSIDE RECORDS SUMMARY | 2016-10-04 12:28 | External Medical Summary | Summary of Care ---
[...] of organic origin (607.84, N52.9) Status: Active Sensorineural hearing loss (389.10, H90.5) Status: Active Routine physical examination (V70.0, Z00.00) Status: Active Hyperlipidemia (272.4, E78.5) Status: Active Right shoulder pain (719.41, M25.511) Status: Active Diabetes mellitus type 2, controlled (250.00, E11.9) Status: Active Hypertension, essential, benign (401.1, I10) Status: Active Edema (782.3, R60.9) Status: Active Lower back pain (724.2, M54.5) Status: Active Murmur (785.2, R01.1) Status: Active Arthritis (716.90, M19.90) Status: Active Medications Name Dates Details Aspirin [...] Details Planned Observations Planned Goals not documented Instructions Name Dates Details Instructions not documented [...]
--- OUTSIDE RECORDS SUMMARY | 2016-10-04 12:28 | External Medical Summary | Summary of Care ---
:1935 Author Name Jak Perez M.D. 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: Active Hyperlipidemia (272.4, E78.5) Status: Active Arthritis (716.90, M19.90) Status: Active Murmur (785.2, R01.1) Status: Active Sensorineural hearing loss (389.10, H90.5) Status: Active Type 2 diabetes mellitus (250.00, E11.9) Status: Active Lower back pain (724.2, M54.5) Status: Active Nephrolithiasis (592.0, N20.0) Status: Active Cough (786.2, R05) Status: Active Weight loss, abnormal (783.21, R63.4) Status: Active Fatigue (780.79, R53.83) Status: Active Hypertension (401.9, I10) Status: Active Insomnia (780.52, G47.00) Status: Active Acute bronchitis (466.0, J20.9) Status: Active Medications Name Dates Details Aspirin [...] 1 tablet daily Quantity: 7 Refills: 0 lA Perez M.D. Started 25-Dec-2014 Active Allergies and [...] smoker Vital Signs Date Test Result Details 25-Dec-2014 13:14 BP Systolic 158 mm[Hg] Status: BP Diastolic 98 mm[Hg] Status: Temperature 99.3 f Status: Heart Rate 86 /min Status: Weight 189 lb Status: Body Mass Index Calculated 29.38 kg/m2 Status: Body Surface Area Calculated 1.98 m2 Status: Results Date Description Value Details Results not documented Plan of Care Planned Observations Name Dates Details Planned Goals not documented Goal Planned Encounters Appointment; Provider: Al Perez On 01-Feb-2015 10:30 Appointment; Provider: Edson Hirsch On 12:00 Appointment; [...] Encounter Diagnosis: Problem not documented 14:15 Appointment; dEson Hirsch On Encounter Diagnosis: Problem not documented 11:45 Appointment; Toby Cabrera On Encounter Diagnosis: Problem not documented 08:15 Appointment; Al Perez On 02-May-2013 Encounter Diagnosis: Problem not documented 09:00 Appointment; Nik John On 07-Mar-2013 Encounter Diagnosis: Problem not documented 09:15 Appointment; Al Perez On 27-Jan-2013 Encounter Diagnosis: Problem not documented 09:15
--- OUTSIDE RECORDS SUMMARY | 2016-10-04 12:28 | External Medical Summary | Continuity of Care Document ---
:1935 Author Organization [facility] Allergies Medications Problems Procedures Results Encounters ACCT Visit Discharge Status Pt. Type Provider Facility Loc./Unit Complaint No. Date/Time [id number] 05/10/2015 [facility] 09:48:00 [facility]
--- OUTSIDE RECORDS SUMMARY | 2016-10-04 12:28 | External Medical Summary | Summary of Care ---
[...] Range: >60 low threshold) EST GFR, NON-AFR TOGOLESE 44 ml/min (Below Range: >60 low threshold) Comments: EST GFR is reported in ml/min per 1.73 m2 of body surface area. For -Portuguese, please multiple result by 1.2.----- BUN:CREATININE RATIO [...]
--- OUTSIDE RECORDS SUMMARY | 2016-10-04 12:28 | External Medical Summary | Summary of Care ---
:1935 Author Name Jak Perez M.D. Address [address], [place] [id number] Care Team Providers Name Role Phone Jak [...] colon polyp (211.3, K63.5) Status: Active Routine physical examination (V70.0, Z00.00) Status: Active Medications Name Dates Details Aspirin [...] Range: >60 low threshold) EST GFR, NON-AFR AFGHAN 48 ml/min (Below Range: >60 low threshold) Comments: EST GFR is reported in ml/min per 1.73 m2 of body surface area. For -Beninese, please multiple result by 1.2.----- GLUCOSE 110 [...] Encounters Appointment; Provider: Al Perez On 08-Jun-2015 08:45 Appointment; Provider: Edson Hirsch On 12:00 Appointment; [...]
--- OUTSIDE RECORDS SUMMARY | 2016-10-04 12:28 | External Medical Summary | Summary of Care ---
:1935 Author Name Jak Perez M.D. Address [address] [place], [place] [id number] Care Team Providers Name Role Phone Jak [...]
--- OUTSIDE RECORDS SUMMARY | 2016-10-04 12:28 | External Medical Summary | Summary of Care ---
:1935 Author Name Jak Perez M.D. Address [address], [place] [phone] Care Team Providers Name Role Phone Jak [...] of Complete Colonoscopy BASIC METABOLIC PROFILE 1210 Ordered:11-Jun-2015 HEMOGLOBIN A1C 3507 Ordered:11-Jun-2015 Immunization Name Dates Details Pneumo (Pneumovax) Administered [...] ml/min Range: >60 (Better) EST GFR, NON-AFR HONDURAN 50 ml/min (Below Range: >60 low threshold) Comments: EST GFR is reported in ml/min per 1.73 m2 of body surface area. For -Montserratian, please multiple result by 1.2.----- BUN:CREATININE RATIO [...] Diagnosis: Problem not documented 10:15 Appointment; Al Perze On Encounter Diagnosis: Problem not documented 09:15 Appointment; Edson Hirsch On Encounter Diagnosis: Problem not documented 08:15 Appointment; Edson Hirsch On Encounter Diagnosis: Problem not documented 14:15 Appointment; Edson Hirsch On Encounter Diagnosis: Problem not documented 11:45 Appointment; Toby Cabrera On Encounter Diagnosis: Problem not documented 08:15
[2016-10-04] MEDS ORDERED: ALBUTEROL/IPRATROPIUM 2.5mg-0.5mg/3ml NEB AEROSOL ONE (12:36)
[2016-10-04] MEDS ORDERED: ASPIRIN 81 MG CHEWABLE TABLET PO ONE (12:57)
[2016-10-04] MEDS ORDERED: ENOXAPARIN 100 MG/ML INJECTION SQ SCH (13:00)
[2016-10-04] MEDS ORDERED: ONDANSETRON 4 MG/2 ML INJECTION IVP PRN (13:58)
[2016-10-04] MEDS ORDERED: ACETAMINOPHEN 325 MG TABLET PO PRN (13:58)
[2016-10-04 14:25] VITALS: BMI 27.2
[2016-10-04] MEDS ORDERED: GAVISCON SUSPENSION 15ml PO PRN (15:12)
--- NOTE | 2016-10-04 15:12 | Cardiology History & Physical ---
History of Present Illness Chief complaint: dyspnea HPI: Darryl is a 81-year-old male who presented to the ED with shortness of breath. He reports that over the course of the past week he has noted dyspnea with exertion and a moderate heaviness without radiation in his chest when he exerts himself. He states that his symptoms improve with rest and relaxation. He is examined in his bed in CCU.He reports PORTILLO X3 days, no dyspnea at rest, or orthopnea. He states he has had some pressure in his chest when he experiences PORTILLO which resolves with rest. He reports cough with inability to produce sputum that he has had ongoing for the last year. He denies recent illness, fever, chills, sore throat, N/V/D, dysurea. Review of Systems - Constitutional Constitutional: Absent: chills, fever(s), weakness - EENMT Eyes: Absent: change in vision Balance: Absent: vertigo Mouth/Throat: Absent: sore throat - Cardiovascular Cardiovascular: Present: dyspnea on exertion. Absent: chest pain, palpitations , syncope, orthopnea Vascular: Absent: pedal edema - Respiratory Respiratory: Present: cough. Absent: dyspnea - Gastrointestinal Gastrointestinal: Absent: diarrhea, nausea, vomiting - Genitourinary Genitourinary: Absent: dysuria - Integumentary/Breasts Integumentary: Absent: rash - Neurological Neurological: Absent: dizziness - Endocrine Endocrine: Absent: palpitations PFSH Patient Stated Medical History Cataracts Yes: floating Hearing Loss Yes: apparent to staff, but patient denies Angina Yes: soa, chest feels funny reason for admit Hypertension Yes Diabetes Mellitus Type 2 Yes Ulcer Yes: 40's Hx Kidney Stones Yes: 2015 Surgical History: Negative Family History: Brother -[place] - Daughters X3 with DM No FH of CVA - Social History Smoking status: Former smoker Substance use type: does not use Alcohol intake frequency: former alcohol drinker Household members: spouse Current occupational status: employed Current residence: Apartment/Private Home Medications Home Medications Medication Instructions Recorded Confirmed Type Lisinopril/Hctz 2012.5 [Prinzide 1 tab QAM 10/04/16 10/04/16 History 12.5] Simvastatin [Zocor] 40 mg PO HS 10/04/16 10/04/16 History Allergies Allergy/AdvReac Type Severity Reaction Status Date / Time No Known Allergies Allergy Verified 10/04/16 12:25 Exam Vital signs: Temperature 98.3 F 10/04/16 13:45 Pulse Rate 92 10/04/16 13:45 Respiratory Rate 21 10/04/16 13:45 Blood Pressure 133/81 10/04/16 13:45 Pulse Oximetry 90 10/04/16 13:45 Oxygen Delivery Method Nasal Cannula Oxygen Flow Rate 2 - Constitutional no acute distress, thin, cooperative - Routine HEENT Exam Head: Present: normocephalic ENT: Present: mucous membranes moist - Routine Neck Exam Absent: JVD, carotid bruit - Routine Chest/Breast/Axilla Exam Chest wall: Absent: tenderness - Routine Respiratory Exam Present: CTA bilaterally. Absent: rales, wheezes - Routine Cardiovascular Exam Present: RRR, no murmur. Absent: JVD - Routine Abdominal Exam Present: soft, normoactive bowel sounds - Routine Extremities Exam Present: no edema - Routine Skin Exam Present: intact, dry, warm - Routine Neurological Exam Present: alert, oriented X3 - Routine Psychiatric Exam Present: normal affect, normal thought process Results 10/04/16 12:11 10/04/16 12:11 Intake and Output 10/04/16 10/04/16 10/04/16 06:59 14:59 22:59 Other: Weight 179 lb 3.773 oz Patient Weight 10/05/16 06:59 Weight 179 lb 3.773 oz Laboratory Results - last 72 hr 10/04/16 10/04/16 12:11 12:11 WBC 10.8 RBC 5.69 Hgb 16.9 Hct 50.0 MCV 87.9 MCH 29.7 MCHC 33.8 RDW Std Deviation 42.5 Plt Count 219 MPV 10.8 Immature Gran % (Auto) 0.2 Neut % (Auto) 76.4 H Lymph % (Auto) 13.7 L [place] % (Auto) 8.1 Eos % (Auto) 1.2 Baso % (Auto) 0.4 Neut # 8.2 H Lymph # 1.5 [place] # 0.9 H Eos # 0.1 Baso # 0.0 Abs Immat Gran (auto) 0.02 Turbidity < 20 Sodium 143 Potassium 5.0 Chloride 107 Carbon Dioxide 23 Anion Gap 13 BUN 20.0 Creatinine 1.5 GFR Calculation 45 BUN/Creatinine Ratio 13 Glucose 164 H Calculated Osmolality 282 H Calcium 9.8 Total Bilirubin 1.20 Icterus Index < 2 AST 25 ALT 28 Alkaline Phosphatase 109 Troponin I 0.223 H B-Natriuretic Peptide 4790 H Total Protein 8.0 Albumin 4.6 Globulin 3.4 Albumin/Globulin Ratio 1.4 Specimen Hemolysis 25 - Imaging and Cardiology Echo: pending EKG results: image reviewed EKG interpretations - Dysrhythmias Sinus rhythms and dysrhythmias: sinus tachycardia - Blocks, axis, hypertrophy, ST abn AV and intraventricular conduction: right bundle branch block (fixed/ intermittent, complete/incomplete), left anterior fascicular block Hospital Course This is a general summary of the patient's hospital course. For more details refer to the complete medical record. Time spent with patient: 25 - 35 minutes Assessment and Plan (1) Hypoxia Status: Acute Patient reports dyspnea on exertion X3 days. With Elevated troponin will obtain CTA for PE. (2) Elevated troponin Status: Acute First troponin is 0.223, trend serial levels. CTA to rule out PE as cause for Troponin spike. (3) Essential (primary) hypertension Status: Acute Reports he has not been taking BP meds as prescribed. Lisinopril/ HCTZ is prescribed, but in light of frequent dry cough, consider different agent. (4) Mixed hyperlipidemia Status: Acute Takes Simvastatin (5) Type 2 diabetes mellitus without complications Status: Acute Currently is not taking medicine prescribed for DM. States his weekly sugars have been mostly 90s - Attestation Attestation Narrative: Recommendation After examining the patient I agree with the above assessment. I am involved in the formulation of the patient's plan of care. 10/06/16 13:01
[2016-10-04] MEDS ORDERED: NS 1,000 ML IV SCH (16:00)
[2016-10-04] MEDS ORDERED: NS 100 ML ONE (16:06)
[2016-10-04] MEDS ORDERED: SALINE FLUSH 10ml SYRINGE ONE (16:06)
[2016-10-04] MEDS ORDERED: IODIXANOL 320mg/ml 100ml INJECTION IV ONE (16:06)
--- NOTE | 2016-10-04 17:23 | XRay Report ---
Indication: SOB PROCEDURE: XR chest 1V: Encounter: Initial Comparison: None Findings: A single frontal chest radiograph demonstrates no evidence of pneumonic infiltrate. The heart is unenlarged. No pleural fluid or pulmonary vascular engorgement. Trachea is midline. Bony structures intact and monitor leads overlie the chest. IMPRESSION: Negative for acute cardiopulmonary abdomen. .
[2016-10-04 17:52] VITALS: TEMP 98.3
--- NOTE | 2016-10-04 17:59 | Discharge Summary ---
<Chantal Paulson - Last Filed: 10/04/16 17:55> Discharge Information Date of admission: 10/04/16 13:28 Anticipated date of discharge: 10/04/16 Attending Physician: Chang Sosa MD Primary care physician: Madison Perez - Discharge Diagnosis Discharge Diagnosis: Bilateral Pulmonary Embolism, Elevated Troponin, hypoxia - Laboratory Labs: Laboratory Results - last 48 hr 10/04/16 10/04/16 10/04/16 12:11 12:11 17:12 WBC 10.8 RBC 5.69 Hgb 16.9 Hct 50.0 MCV 87.9 MCH 29.7 MCHC 33.8 RDW Std Deviation 42.5 Plt Count 219 MPV 10.8 Immature Gran % (Auto) 0.2 Neut % (Auto) 76.4 H Lymph % (Auto) 13.7 L [place] % (Auto) 8.1 Eos % (Auto) 1.2 Baso % (Auto) 0.4 Neut # 8.2 H Lymph # 1.5 [place] # 0.9 H Eos # 0.1 Baso # 0.0 Abs Immat Gran (auto) 0.02 Turbidity < 20 Sodium 143 Potassium 5.0 Chloride 107 Carbon Dioxide 23 Anion Gap 13 BUN 20.0 Creatinine 1.5 GFR Calculation 45 BUN/Creatinine Ratio 13 Glucose 164 H Calculated Osmolality 282 H Calcium 9.8 Total Bilirubin 1.20 Icterus Index < 2 AST 25 ALT 28 Alkaline Phosphatase 109 Troponin I 0.223 H 0.250 H B-Natriuretic Peptide 4790 H Total Protein 8.0 Albumin 4.6 Globulin 3.4 Albumin/Globulin Ratio 1.4 Specimen Hemolysis 25 < 15 - Radiology Radiology: Date of Exam: 10/04/16 Ordering Provider: Joe Iyer DO Type of Exam(s): XR chest 1V Reason for Exam(s): SOB Indication: SOB PROCEDURE: XR chest 1V: Encounter: Initial Comparison: None Findings: A single frontal chest radiograph demonstrates no evidence of pneumonic infiltrate. The heart is unenlarged. No pleural fluid or pulmonary vascular engorgement. Trachea is midline. Bony structures intact and monitor leads overlie the chest. IMPRESSION: Negative for acute cardiopulmonary abdomen. History of Present Illness HPI: Darryl is a 81-year-old male who presented to the ED with shortness of breath. He reports that over the course of the past week he has noted dyspnea with exertion and a moderate heaviness without radiation in his chest when he exerts himself. He states that his symptoms improve with rest and relaxation. He is examined in his bed in CCU.He reports PORTILLO X3 days, no dyspnea at rest, or orthopnea. He states he has had some pressure in his chest when he experiences PORTILLO which resolves with rest. He reports cough with inability to produce sputum that he has had ongoing for the last year. He denies recent illness, fever, chills, sore throat, N/V/D, dysurea. Hospital Course This is a general summary of the patient's hospital course. For more details refer to the complete medical record. Time spent with patient: 25 - 35 minutes DVT Prophylaxis: Lovenox Exam Vital signs: Temperature 98.3 F 10/04/16 16:00 Pulse Rate 85 10/04/16 16:00 Respiratory Rate 23 10/04/16 16:00 Blood Pressure 130/84 10/04/16 16:00 Pulse Oximetry 96 10/04/16 16:00 Oxygen Delivery Method Nasal Cannula Oxygen Flow Rate 2 - Constitutional no acute distress, well nourished, thin - Routine HEENT Exam Head: Present: normocephalic ENT: Present: mucous membranes moist - Routine Neck Exam Absent: JVD, carotid bruit - Routine Chest/Breast/Axilla Exam Chest wall: Absent: tenderness - Routine Respiratory Exam Present: CTA bilaterally, rales. Absent: wheezes - Routine Cardiovascular Exam Present: RRR, no murmur - Routine Abdominal Exam Present: soft, normoactive bowel sounds - Routine Skin Exam Present: intact, dry, warm - Routine Neurological Exam Present: alert, oriented X3 - Routine Psychiatric Exam Present: normal affect, normal thought process Results 10/04/16 12:11 10/04/16 12:11 Cardiac Enzymes 10/04/16 Range/Units 17:12 Troponin I 0.250 H (0-0.12) ng/ml Intake and Output 10/04/16 10/04/16 10/04/16 06:59 14:59 22:59 Other: Weight 179 lb 3.773 oz Patient Weight 10/05/16 06:59 Weight 179 lb 3.773 oz - Imaging and Cardiology Echo: pending EKG results: image reviewed Imaging & Cardiology Narrative: 10/04/16 18:04 Date of Exam: 10/04/16 Ordering Provider: Joe Iyer DO Type of Exam(s): XR chest 1V Reason for Exam(s): SOB Indication: SOB PROCEDURE: XR chest 1V: Encounter: Initial Comparison: None Findings: A single frontal chest radiograph demonstrates no evidence of pneumonic infiltrate. The heart is unenlarged. No pleural fluid or pulmonary vascular engorgement. Trachea is midline. Bony structures intact and monitor leads overlie the chest. IMPRESSION: Negative for acute cardiopulmonary abdomen. Discharge Plan - Med Rec/Dispo Referrals/Follow Up: Madison Perez [Family Provider] - Prescriptions: Continue Simvastatin [Zocor] 40 mg PO HS Lisinopril/Hctz 12.5 [Prinzide 2012.5] 1 tab QAM - Disposition 02 To [facility] Acute Care <Chang Sosa - Last Filed: 10/06/16 13:15> Discharge Information Date of admission: 10/04/16 13:28 Attending Physician: Chang Sosa MD Primary care physician: [facility] Hospital Course This is a general summary of the patient's hospital course. For more details refer to the complete medical record. Exam Vital signs: Temperature 98.3 F 10/04/16 16:00 Pulse Rate 90 10/04/16 18:00 Respiratory Rate 27 H 10/04/16 18:00 Blood Pressure 142/74 H 10/04/16 18:00 Pulse Oximetry 94 10/04/16 18:00 Oxygen Delivery Method Nasal Cannula Oxygen Flow Rate 2 Results 10/04/16 12:11 10/04/16 12:11 Discharge Plan - Med Rec/Dispo - Attestation Attestation Narrative: 10/06/16 13:15 Recommendation After examining the patient I agree with the above assessment. I am involved in the formulation of the patient's plan of care.
[2016-10-04 18:27] VITALS: BP 142/74; PULSE 90; RESP 27; O2SAT 94
[2016-10-04] MEDS ORDERED: SIMVASTATIN 40 MG TABLET PO SCH (22:00)
[2016-10-05] MEDS ORDERED: ASPIRIN 81 MG CHEWABLE TABLET PO SCH (09:00)
[2016-10-05] MEDS ORDERED: LISINOPRIL/HCTZ 20/12.5 MG TABLET PO SCH (09:00)
--- NOTE | 2016-10-05 13:19 | CT Scan Report ---
Indication: dyspnea PROCEDURE: CT angio pulm emboli: Encounter: Initial Comparison: Chest x-ray, 10/04/2016 Findings: Axial, coronal, and sagittal images including coronal MIP images utilizing radiation dose reduction technique and 75 cc of Visipaque 320 There are extensive bilateral pulmonary emboli including each main pulmonary artery, interlobar pulmonary arteries, and bilateral upper and lower lobe segmental pulmonary arteries. No evidence of thoracic aortic dissection or aneurysm although it is poorly opacified. Reflux into the intrahepatic inferior vena cava. Right upper lobe calcified granuloma. Posterior basal fibrosis. No concerning masses. No mediastinal or hilar lymphadenopathy. Axillary and supraclavicular regions unremarkable. Fatty atrophy of the pancreas. Left renal cyst. Mild ectasia of the infrarenal abdominal aorta where measures close to 3 cm. IMPRESSION: 1. Extensive bilateral pulmonary emboli. 2. Additional findings as described above. Findings in agreement with [facility] which rendered report at time of service. .
== END 2016-10-04 18:20 | disposition short-term general hospital (02) ==
LOC: CCU 11:44 → ED 11:44 → CCU 14:00
PROVIDERS: ADMIT Internal Medicine Cardiovascular Disease; ATTEND Internal Medicine Cardiovascular Disease